=== PATIENT | female | born 1955 | race Caucasian/White ===

== ENCOUNTER 2018-03-01 07:05 | Day surgery (SDC) | payer BC ==
--- NOTE | 2018-02-19 21:55 | HP ---
CC: Dr. Archie Gonzalez * PREOPERATIVE HISTORY AND PHYSICAL: DATE OF ADMISSION: 03/01/18 This patient is scheduled for same day surgery admission by Dr. Tate on Sunday , 03/01/18. DATE OF PREOPERATIVE HISTORY AND PHYSICAL EXAMINATION: 02/19/18. ATTENDING SURGEON: Lennie Tate MD * (dictated by Felicia Martin NP) CHIEF COMPLAINT: Left breast abnormality. HISTORY OF PRESENT ILLNESS: The patient is a 62-year-old female evaluated by Dr. Tate for a change in her left breast that the patient first noticed as a left nipple inversion in October of 2017. This was not associated with any lumps or pain or nipple discharge. She reported that many years ago, her right nipple inverted and this was associated with termination of breast feeding. She has never had a breast biopsy, she has never had radiation to the chest. She has no family history of breast or ovarian cancer. She was on control pills for about 10 years 30 years ago and hormone replacement for about 2 years 20 years ago. She was age 9 when she had her first menstrual period, she was age 31 with the of her first child and she did breast feed; she believes she went through menopause around age 43[address] Tate examined the patient and recommended an MRI of the left breast and the patient returned for those results on 01/14/18; Dr. Tate discussed the findings of the MRI, which showed a likely benign finding behind the left nipple. Because of the left nipple inversion and also a small protuberance of the tissue around the central duct of the left nipple, Dr. Tate has recommended excision of the left nipple abnormality with a circumareolar incision to look at the retroareolar structures and excise the nodule as well as to remove the central duct and the surrounding abnormal tissue. Dr. Tate explained the planned procedure as well as the risks, benefits, and alternatives. Today, I reviewed the typical postoperative care and recovery. The patient has had a chance to ask questions and stated that she understands the information and is satisfied with the answers given to her questions. She will sign surgical consent on the day of surgery. PAST MEDICAL HISTORY: Generally healthy. No acute or chronic conditions. PAST SURGICAL HISTORY: section in 1985, cataract extractions in both eyes in 2014. OB HISTORY: 2, para 2. She is up-to-date with pelvic exam, Pap smear, breast exam and mammogram. MEDICATIONS: Low dose aspirin 81 mg p.o. daily, which she will hold 1 week preoperatively. She takes the following supplements: 1. Lizemores 3. 2. Multivitamin. 3. Vitamin D3. 4. Yue-C. 5. Calcium and probiotic. ALLERGIES: PENICILLIN and SYNTHETIC PENICILLINS cause hives and she is LACTOSE intolerant. FAMILY HISTORY: No known history of breast or ovarian cancer. No known anesthesia complications or bleeding tendencies. No known history of clotting disorder. SOCIAL HISTORY: She is and is a nonsmoker. She exercises regularly. She drinks alcohol socially and denies the use of other substances. REVIEW OF SYSTEMS: Constitutional: No fevers, chills, excessive fatigue or weight loss. Endocrine: No diabetes or thyroid disease. Hematologic: No easy bruising or bleeding. No previous blood transfusions. Breasts: As described in history of present illness. Respiratory: No dyspnea on exertion. No chronic cough. Cardiovascular: No anginal chest pain or palpitations. Gastrointestinal: No nausea, vomiting, diarrhea, GI bleeding or constipation. Genitourinary: No dysuria. Musculoskeletal: No joint or back pain. Neurologic: No headache, blurred vision, areas of focal weakness or numbness. General: No previous anesthesia complications. No history of deep vein thrombosis or pulmonary embolism. PHYSICAL EXAMINATION GENERAL SURVEY: The patient is a 62-year-old female, well developed, well nourished, in no acute distress. VITAL SIGNS: Height 68 inches, weight 135 pounds, body mass index 20.5. Blood pressure 114/62, pulse 72 and regular, respiratory rate 16, temperature 97.6 tympanic. HEENT: Benign. NECK: Supple. No cervical lymphadenopathy. No supraclavicular lymphadenopathy. BREASTS: Symmetric, both nipples are inverted. There is no skin dimpling. There is no nipple discharge. There is no axillary adenopathy; palpation of the right breast reveals no discrete masses. Palpation of the left breast confirms nipple inversion and retroareolar thickening at the superior edge of the nipple and a small protuberance of tissue around the central duct. LUNGS: Breath sounds bilaterally clear and equal. HEART: Regular rate and rhythm. No murmurs or rubs appreciated. ABDOMEN: Active bowel sounds, soft, nontender, nondistended. No obvious masses , organomegaly or evidence of ventral hernia. PELVIC EXAM: Done within the past year, not repeated. RECTAL EXAM: Done within the past year, not repeated. EXTREMITIES: Warm without edema or skin ulceration. NEUROLOGIC: Alert and oriented x3. Steady gait. SKIN: Warm, dry, intact. IMPRESSION: Left breast abnormality. PLAN: Same day surgery admission to Dr. Tate's service on 03/01/18, for excision of left breast abnormality. JUAN MANUEL MARTIN, BAG BLEACHER [id number]/[facility] #: [id number] CLARI
[~2018-03-01 07:05] MED LIST: Buffered Lidocaine 0.9% SYRIN* 5 ML/SYR SYRINGE INTRADERM ONE; Clindamycin 900 MG IVPREMIX(* 900 MG/50 ML SDV IV ONE; Dexamethasone IV* 4 MG/ML 1 ML (4 MG) IV SLOW PU ONE; Dexamethasone IV* 4 MG/ML 1 ML (4 MG) ONE; Famotidine IV* 10 MG/ML 2 ML (20 mg) IV ONE; Famotidine IV* 10 MG/ML 2 ML (20 mg) ONE; Ondansetron ODT TAB* 4 MG ONE; Ondansetron ODT TAB* 4 MG PO ONE
[2018-03-01] MEDS ORDERED: Bupivacaine 0.5% SDV PF* 30ML VIAL ONE (07:55)
[2018-03-01] MEDS ORDERED: Lidocaine 1% INJ* 10 MG/ML 30 ML SDV ONE (08:00)
[2018-03-01] MEDS ORDERED: Midazolam* 1 MG/ML 5 ML VIAL (5 MG) ONE (08:08)
[2018-03-01] MEDS ORDERED: fentaNYL* 50 MCG/ML 2 ML VIAL (100 MCG VIAL) ONE (08:08)
[2018-03-01] MEDS ORDERED: Lidocaine 2% PF * 5 ML VIAL ONE (08:09)
[2018-03-01] MEDS ORDERED: Propofol* 10 MG/ML 20 ML BTL IV PUSH ONE (08:09)
[2018-03-01] MEDS ORDERED: Ondansetron ODT TAB* 4 MG PO PRN (09:01)
[2018-03-01] MEDS ORDERED: DiMENhydriNATE IV* 50 MG/ML VIAL IV PUSH PRN (09:01)
[2018-03-01] MEDS ORDERED: Naloxone* 0.4 MG/ML 1 ML VIAL IV PRN (09:01)
--- NOTE | 2018-03-01 09:28 | BRIEFOPN ---
Brief Operative Note - Surgery Procedures: Procedures CLOSED ENDOSCOPIC BIOPSY OF LARGE INTESTINE (01/22/14) COLONOSCOPY (01/18/04) 03/01/18 Op Note Pre-op dx: left nipple inversion Post-op dx: same Procedure: excision left nipple abnormality Surgeon: Bebeto Asst: None Anesth: local-MAC EBL: 2 cc Complications: none SCDs on during surgery Abx: given pre-op Pt. tolerated the procedure well and was transferred to in a stable condition. CLFoster
[2018-03-01] MEDS ORDERED: HYDROcodone/ACETAMIN 5-325 MG* 1 TAB PO PRN (09:30)
[2018-03-01 09:53] VITALS: BP 109/62
--- NOTE | 2018-03-02 06:59 | OP ---
CC: [facility]; Dr. Archie Gonzalez; Dr. Roberta Keith OPERATIVE REPORT: DATE OF OPERATION: 03/01/18 DATE OF : 51 SURGEON: Lennie Tate MD PSYCHIATRIC NURSING AIDE: There was no assistant plant manager for this case. PRE-OP DIAGNOSIS: Nipple inversion. POST-OP DIAGNOSIS: Nipple inversion. OPERATIVE PROCEDURE: Excision of left nipple abnormality. INDICATIONS: Ms. Barker is a 62-year-old woman, who presented with newly recognized left ni pple inversion prompting a plan for surgical intervention as it was without any other imaging finding . DESCRIPTION OF PROCEDURE: She was prepared for surgery and brought to the operating room and placed on the OR table in the supine position and given IV sedation. The left breast was prepped and drape d in the usual sterile fashion. After infiltrating with local anesthetic, an ellipse of skin from the nipple extending from the central duct radially was taken along with some of the subcutaneous tissue . This was handed off as a specimen. Hemostasis was assured with electrocautery and then closure wa s accomplished with 3-0 Vicryl to reapproximate the subcutaneous tissue and the skin was closed with 4-0 Surgipro interrupted stitches. A dry sterile dressing was then applied. She tolerated the proce dure well and was transferred to Recovery in stable condition. All sponge and instrument counts were correct. [id number]/[facility] #: [id number]
== END 2018-03-01 10:46 | disposition home or self-care (01) ==
LOC: OR 07:05
PROVIDERS: ATTEND Surgery
DX: N64.59 Other signs and symptoms in breast (principal); N60.42 Mammary duct ectasia of left breast
CPT/HCPCS: 88305; A9270-GY; J1100; J2250; J2704; J3010